=== PATIENT | female | born 1955 | race African-American/Black ===

== ENCOUNTER 2016-06-23 08:59 | Inpatient (IN) | payer OTHER ==
[~2016-06-23] VITALS: Ht 165.1 cm; Wt 101.5 kg
[2016-06-23] VITALS (7 sets, daily range): BP systolic 121–141; BP diastolic 66–80; PULSE 47–64; RESP 16–19; TEMP 98.3–99.2; O2SAT 63–100
[~2016-06-23 08:59] MED LIST: ASPI325T PO; BENA20TA PO; CHOL100025 CHEW; GINK40TA2 PO; HYDR25TA5 PO; METO100T9 PO; MULTTAB67 PO; OMEGCAP PO; REFRDRO EACH EYE; ST J PO; VITA10004 PO
[2016-06-23 09:52] LABS: AUTOMATED NEUTROPHIL # 3.4 TH/MM3 (1.8-7.7); BASOPHIL # 0.1 TH/MM3 (0-0.2); BASOPHIL % 0.9 % (0.0-2.0); EOSINOPHIL # 0.3 TH/MM3 (0-0.4); HEMATOCRIT 41.2 % (35.0-46.0); HEMO FLAGS DIFF FINAL; LYMPH % 24.6 % (9.0-44.0); LYMPHOCYTE # 1.3 TH/MM3 (1.0-4.8); MEAN CELL VOLUME 80.8 FL (80.0-100.0); MEAN CORPUSCULAR HEMOGLOBIN 26.5 PG (27.0-34.0); MEAN CORPUSCULAR HGB CONC 32.8 % (32.0-36.0); NEUT % 62.5 % (16.0-70.0); PLATELET COUNT 260 TH/MM3 (150-450); RED CELL DISTRIBUTION WIDTH 13.8 % (11.6-17.2); WHITE BLOOD COUNT 5.4 TH/MM3 (4.0-11.0)
[2016-06-23 10:00] LABS: APTT (PATIENT) 28.2 SEC (24.3-30.1); PROTHROMBIN TIME - PATIENT 10.5 SEC (9.8-11.6)
[2016-06-23 10:18] LABS: BICARBONATE 29.8 MEQ/L (21.0-32.0); POTASSIUM 3.6 MEQ/L (3.5-5.1)
[2016-06-23] MEDS ORDERED: MIDAZOLAM HCL 2 MG/2 ML VIAL ONE (10:48)
[2016-06-23] MEDS ORDERED: HEPARIN-NS/PF INJ 500 ML ONE (10:50)
[2016-06-23] MEDS ORDERED: NITROGLYCERIN 0.4 MG SL 25 TABS/BTL SL ONE (11:24)
[2016-06-23] MEDS ORDERED: MORPHINE SULFATE 8 MG/ML INJ ONE (11:26)
[2016-06-23] MEDS ORDERED: SODIUM CHLOR 0.9% 1000 ML INJ 1,000 ML IV SCH (11:35)
[2016-06-23] MEDS ORDERED: MISC INFORMATION XX ONE (11:45)
[2016-06-23] MEDS ORDERED: HEPARIN-D5W INJ 250 ML IV SCH (11:45)
[2016-06-23] MEDS ORDERED: ATROPINE SULFATE 1 MG/ML VIAL IV PRN (11:45)
[2016-06-23] MEDS ORDERED: SODIUM CHLOR 0.9% 250 ML INJ 250 ML IV PRN (11:45)
[2016-06-23] MEDS ORDERED: METOPROLOL SUCCINATE 50 MG EXTENDED RELEASE TAB PO SCH (12:00)
[2016-06-23] MEDS ORDERED: NITROGLYCERIN 2% OINT 1 GM PACKET TOPICAL SCH ×2 (12:00→18:00)
[2016-06-23] MEDS ORDERED: PILL SPLITTER OTHER PRN (12:15)
[2016-06-23] MEDS ORDERED: HYDROCHLOROTHIAZIDE 25 MG TAB PO SCH (13:00)
[2016-06-23] MEDS ORDERED: LISINOPRIL 20 MG TAB PO SCH (13:00)
[2016-06-23] MEDS ORDERED: HEPARIN SODIUM - IV 10,000 UNITS/10 ML VIAL IV ONE (13:30)
--- NOTE | 2016-06-23 13:49 | EKG ---
Date Performed: 06/23/2016 Time Performed: 09:51:30 PTAGE: 60 years EKG: Sinus bradycardia Normal ECG except for rate COMPARED TO PRIOR ELECTROCARDIOGRAM, I cannot accurately compare because of artifact on prior electrocardiogram. PREVIOUS TRACING : 11/30/2007 19.49 DOCTOR: Vazquez Bermudez Interpretating Date/Time 06/23/2016 13:47:06
--- NOTE | 2016-06-23 14:37 | MA ---
cc: JOSIE LEE MD, GLENN H. M.D. DATE: 06/23/2016 PROCEDURE Left heart catheterization, selective coronary angiography, left ventriculography. PROCEDURE NOTES The patient was brought to the cardiac catheterization laboratory in a fasting state after having signed informed consent. The right groin was prepped and draped as per policy and anesthetized with 1% lidocaine. Arterial access was obtained via the right femoral artery and a 6-Belarusian sheath was placed. Coronary arteriography was performed using 6-Bel[place]ian Dago left 4.0 and right progressive catheters. Left ventriculography was done using a standard 6-[place]arusian pigtail. There were no apparent immediate complications. Her arteriotomy site was closed with Vascade with the achievement of good hemostasis. HEMODYNAMIC DATA Left ventricle 129 with an end-diastolic pressure is 16. Aorta 123/68 with a mean of 93. There was no significant transvalvular aortic gradient on pullback of the pigtail catheter. CORONARY ARTERIOGRAPHY The left main has overall mild ostial to mid disease resulting in up to 15% stenosis. The proximal LAD is totally occluded very near the ostium. There was late faint filling of the mid to distal LAD and a small diagonal. The left circumflex is a small vessel giving rise to a very large obtuse marginal. There are overall minimal luminal irregularities in the left circumflex system. The right coronary artery is a fairly large dominant vessel with diffuse mild disease resulting in up to 20% stenosis. LEFT VENTRICULOGRAPHY Contrast injection of the left ventricle reveals no definite segmental wall motion abnormalities. Ejection fraction is estimated at 60%. CONCLUSION 1. Severe single-vessel coronary artery disease (LAD). 2. Normal left ventricular function with estimated ejection fraction is 60%. DISCUSSION The patient will be referred for bypass surgery. A left internal mammary artery could be placed to the LAD. The total occlusion proximally appears to be relatively long and very close to the ostium. Hosea Gonzalez MD [facility]/TLL /11:32 AM /2:27 PM [facility] CENTERVeronica
[2016-06-23] MEDS ORDERED: PAPAVERINE INJ 60 MG, NITROGLYCERIN INJ 100 MCG, DILTIAZEM INJ 100 MG in SODIUM CHLORID... IRRIGATION SCH (15:30)
[2016-06-23] MEDS ORDERED: ACETAMINOPHEN 325 MG TAB PO PRN (15:30)
[2016-06-23] MEDS ORDERED: NALOXONE HCL 0.4 MG/ML AMP IV PRN (15:30)
[2016-06-23] MEDS ORDERED: INSULIN REGULAR (IV INFUSION) 100 UNITS in SODIUM CHLORIDE 0.9% INJ 100 ML IV SCH (15:30)
[2016-06-23] MEDS ORDERED: ONDANSETRON HCL 4 MG/2 ML VIAL IVP PRN (15:30)
[2016-06-23] MEDS ORDERED: SODIUM CHLORIDE 0.9% FLUSH 10 ML FLUSH IV FLUSH PRN ×2 (15:30)
[2016-06-23] MEDS ORDERED: CHLORHEXIDINE GLUCONATE 4% SOLN 120 ML BTL TOPICAL SCH (15:30)
[2016-06-23] MEDS ORDERED: ceFAZolin 2 GM PREMIX 50 ML IV SCH (15:30)
[2016-06-23] MEDS ORDERED: CEFAZOLIN INJ 500 MG in SODIUM CHLORIDE 0.9% IRR BTL 500 ML IRRIGATION SCH (15:30)
[2016-06-23] MEDS ORDERED: METOPROLOL TARTRATE 25 MG TAB PO SCH (15:30)
--- NOTE | 2016-06-23 15:37 | PD.CAR.PN ---
CVT Progress Note Subjective/Hospital Course: sts data discussed with pt RISK SCORES About the STS Risk Calculator Procedure: CAB Only Risk of Mortality: 0.486% Morbidity or Mortality: 8.36% Long Length of Stay: 3.16% Short Length of Stay: 55.881% Permanent Stroke: 0.586% Prolonged Ventilation: 6.068% DSW Infection: 0.371% Renal Failure: 1.098% Reoperation: 3.281% Objective: Vital Signs Date Time Temp Pulse Resp B/P Pulse Ox O2 Delivery O2 Flow Rate FiO2 06/23/16 12:22 98 Room Air 06/23/16 09:00 53 19 141/73 100 Labs: Laboratory Tests Test 06/23/16 09:25 White Blood Count 5.4 TH/MM3 (4.0-11.0) Red Blood Count 5.10 MIL/MM3 (4.00-5.30) Hemoglobin 13.5 GM/DL (11.6-15.3) Hematocrit 41.2 % (35.0-46.0) Mean Corpuscular Volume 80.8 FL (80.0-100.0) Mean Corpuscular Hemoglobin 26.5 PG (27.0-34.0) Mean Corpuscular Hemoglobin 32.8 % Concent (32.0-36.0) Red Cell Distribution Width 13.8 % (11.6-17.2) Platelet Count 260 TH/MM3 (150-450) Mean Platelet Volume 7.5 FL (7.0-11.0) Neutrophils (%) (Auto) 62.5 % (16.0-70.0) Lymphocytes (%) (Auto) 24.6 % (9.0-44.0) Monocytes (%) (Auto) 6.0 % (0.0-8.0) Eosinophils (%) (Auto) 6.0 % (0.0-4.0) Basophils (%) (Auto) 0.9 % (0.0-2.0) Neutrophils # (Auto) 3.4 TH/MM3 (1.8-7.7) Lymphocytes # (Auto) 1.3 TH/MM3 (1.0-4.8) Monocytes # (Auto) 0.3 TH/MM3 (0-0.9) Eosinophils # (Auto) 0.3 TH/MM3 (0-0.4) Basophils # (Auto) 0.1 TH/MM3 (0-0.2) CBC Comment DIFF FINAL Differential Comment Prothrombin Time 10.5 SEC (9.8-11.6) Prothromb Time International 1.0 RATIO Ratio Activated Partial 28.2 SEC Thromboplast Time (24.3-30.1) Sodium Level 138 MEQ/L (136-145) Potassium Level 3.6 MEQ/L (3.5-5.1) Chloride Level 102 MEQ/L (98-107) Carbon Dioxide Level 29.8 MEQ/L (21.0-32.0) Anion Gap 6 MEQ/L (5-15) Blood Urea Nitrogen 16 MG/DL (7-18) Creatinine 0.93 MG/DL (0.50-1.00) Estimat Glomerular Filtration 74 ML/MIN (>89) Rate Random Glucose 89 MG/DL (74-106) Calcium Level 9.0 MG/DL (8.5-10.1) Result Diagram: 06/23/16 0925 06/23/16 0925 Connie Osorio Jun 23, 2016 15:37
--- NOTE | 2016-06-23 16:26 | RADRPT ---
EXAM DATE/TIME: 06/23/2016 16:06 [facility] COMPARISON: No previous studies available for comparison. INDICATIONS : Evaluate for pneumonia, pneumothorax, and communicable disease. Pre op for CABG. MEDICAL HISTORY : None. SURGICAL HISTORY : None. ENCOUNTER: Initial ACUITY: 1 day PAIN SCORE: 0/10 LOCATION: Bilateral chest FINDINGS: PA and lateral views of the chest demonstrate the lungs to be symmetrically aerated without evidence of mass, infiltrate or effusion. The cardiomediastinal contours are unremarkable. Osseous structure s are intact. CONCLUSION: No acute disease. Luciano Magana MD on June 23, 2016 at 16:24 Board Certified Radiologist. This report was verified electronically.
[2016-06-23] MEDS ORDERED: IOHEXOL 350 MG/ML 100 ML BTL (for Cath Lab) OTHER ONE (16:53)
[2016-06-23 17:40] LABS: BLOOD, URINE NEG (NEG); COMMENT (UR) CULT NOT INDICATED; CULTURE IF INDICATED CULT NOT INDICATED; GLUCOSE,URINE NEG (NEG); KETONE, URINE NEG (NEG); NITRITE,URINE NEG (NEG); PH, URINE 6.5 (5.0-8.5); SQUAMOUS EPITHELIAL CELL URINE 1 /hpf (0-5); URINE COLOR LIGHT-YELLOW (YELLW/STRAW)
[2016-06-23] MEDS ORDERED: HEPARIN SODIUM - IV 10,000 UNITS/10 ML VIAL IV PRN ×2 (17:45)
--- NOTE | 2016-06-23 20:28 | RADRPT ---
EXAM DATE/TIME: 06/23/2016 17:21 [facility] COMPARISON: No previous studies available for comparison. INDICATIONS : Preop CABG. MEDICAL HISTORY : Cataracts. Syncopy. Palpitations. Heart murmur. HTN. SURGICAL HISTORY : Tonsillectomy. section. Left shoulder. Right jaw mass removed. Cardiac cath. ENCOUNTER: Initial ACUITY: 1 day PAIN SCORE: 0/10 LOCATION: Bilateral neck PEAK SYSTOLIC VELOCITIES (cm/sec): ICA/CCA RATIO: Right: 1.1 Left: 1.1 ICA: Right: 102 Left: 95 CCA: Right: 97 Left: 87 ECA: Right: 90 Left: 122 VERTEBRAL: Right: 58 antegrade Left: 45 antegrade Elevated flow velocities and ICA/CCA ratios have been found to correlate with increased degrees of vessel stenosis, calculated as percentage of diameter relative to a normal segment of distal ICA/CCA FINDINGS: Antegrade flow is seen in both vertebral arteries. There is mild to moderate atherosclerotic plaquing at the origin of both ICAs without any significant stenosis. CONCLUSION: No evidence for hemodynamically significant stenosis. Marques Kaye MD on June 23, 2016 at 20:25 Board Certified Radiologist. This report was verified electronically.
--- NOTE | 2016-06-23 20:32 | RADRPT ---
EXAM DATE/TIME: 06/23/2016 17:38 [facility] COMPARISON: No previous studies available for comparison. INDICATIONS : Preop CABG. MEDICAL HISTORY : Cataracts. Syncopy. Palpitations. Heart murmur. HTN. SURGICAL HISTORY : Tonsillectomy. section. Left shoulder. Right jaw mass removed. Cardiac cath. ENCOUNTER: Initial ACUITY: 1 day PAIN SCORE: 0/10 LOCATION: Bilateral leg. TECHNIQUE: Venous ultrasound of the left and right leg was performed from the inguinal ligament to the proximal calf. Real-time, color Doppler and spectral tracing, compression and augmentation techniques were us ed. FINDINGS: RIGHT LEG: There is normal compressibility of the deep venous system from the inguinal region to the proximal ca lf. No echogenic clot is seen in the lumen of the common femoral, femoral, popliteal, and posterior tibial veins. There is a normal response of the venous system to proximal and distal augmentation an d respiration. The evaluation of the right iliac and common femoral veins are limited due to bandage . LEFT LEG: There is normal compressibility of the deep venous system from the inguinal region to the proximal ca lf. No echogenic clot is seen in the lumen of the common femoral, femoral, popliteal, and posterior tibial veins. There is a normal response of the venous system to proximal and distal augmentation an d respiration. CONCLUSION: Normal examination. Marques Kaye MD on June 23, 2016 at 20:26 Board Certified Radiologist. This report was verified electronically.
--- NOTE | 2016-06-23 20:32 | RADRPT ---
EXAM DATE/TIME: 06/23/2016 17:48 [facility] COMPARISON: No previous studies available for comparison. INDICATIONS : Preop CABG. MEDICAL HISTORY : Cataracts. Syncopy. Palpitations. Heart murmur. HTN. SURGICAL HISTORY : Tonsillectomy. section. Left shoulder. Right jaw mass removed. Cardiac cath. ENCOUNTER: Initial ACUITY: 1 day PAIN SCORE: 0/10 LOCATION: Bilateral leg. GREATER SAPHENOUS VEIN THIGH: PROXIMAL: Right 3 mm Left 3 mm MID: Right 3 mm Left 3 mm DISTAL: Right 2 mm Left 2 mm CALF: PROXIMAL: Right 2 mm Left 2 mm MID: Right 1 mm Left 1 mm DISTAL: Right 1 mm Left 1 mm FINDINGS: The venous system of the lower extremities are patent by color Doppler imaging. Measurements of the leg veins (in mm) are listed above. CONCLUSION: Normal examination. Marques Kaye MD on June 23, 2016 at 20:30 Board Certified Radiologist. This report was verified electronically.
[2016-06-23] MEDS: ATORVASTATIN 40 MG TAB PO SCH (21:00)
[2016-06-23] MEDS ORDERED: SODIUM CHLORIDE 0.9% FLUSH 10 ML FLUSH IV FLUSH SCH (21:00)
[2016-06-23] MEDS: SODIUM CHLORIDE 0.9% FLUSH 10 ML FLUSH IV FLUSH SCH (21:00)
[2016-06-23 22:27] LABS: HEMOGLOBIN A1b 1.6 %; HEMOGLOBIN Ao 85.9 %; HEMOGLOBIN LA1C 1.8 %; HEMOGLOBIN P3 3.9 %
[2016-06-24] VITALS (18 sets, daily range): BP systolic 107–118; BP diastolic 57–71; PULSE 46–68; RESP 10–18; TEMP 95.4–98.4; O2SAT 97–99
[2016-06-24] MEDS: DOCUSATE SODIUM 100 MG CAP PO SCH ×2 (04:00→16:05)
[2016-06-24] MEDS ORDERED: AMINOCAPROIC ACID INJ 250 MG/ML 20 ML VIAL IV ONE (05:00)
[2016-06-24] MEDS ORDERED: ARTIFICIAL TEARS OPTH OINT 3.5 APPLIC/3.5 GM TUBO ONE (05:00)
[2016-06-24] MEDS ORDERED: MAGNESIUM SULFATE 1000 MG/2 ML VIAL (PED) IV ONE (05:00)
[2016-06-24] MEDS ORDERED: DEXMEDETOMIDINE INJ 50 ML IV ONE (05:00)
[2016-06-24] MEDS ORDERED: HEPARIN SODIUM - SQ 10,000 UNITS/ML VIAL SQ ONE (05:00)
[2016-06-24] MEDS ORDERED: PROTAMINE SULFATE 250 MG/25 ML VIAL IV ONE (05:00)
[2016-06-24] MEDS ORDERED: CARDIOPLEGIC IRR 1,000 ML ONE (06:34)
[2016-06-24] MEDS ORDERED: POTASSIUM CHLORIDE 40 MEQ/20 ML VIAL ONE (06:34)
[2016-06-24] MEDS ORDERED: ALBUMIN HUMAN 25% 12.5 GM/50 ML BAGP IV ONE (06:35)
[2016-06-24] MEDS ORDERED: MANNITOL INJ 50 ML ONE (06:35)
[2016-06-24] MEDS ORDERED: SODIUM BICARBONATE 8.4% INJ 50 MEQ/50 ML SYR ONE (06:35)
[2016-06-24] MEDS ORDERED: HEPARIN SODIUM - SQ 10,000 UNITS/ML VIAL ONE ×2 (06:36→06:39)
[2016-06-24] MEDS ORDERED: HEPARIN SODIUM - IV 10,000 UNITS/10 ML VIAL ONE (06:36)
[2016-06-24] MEDS ORDERED: VANCOMYCIN HCL 1000 MG VIAL ONE (06:39)
[2016-06-24] MEDS ORDERED: methylPREDNISolone SOD SUCC 125 MG/2 ML VIAL ONE (06:39)
[2016-06-24] MEDS ORDERED: ceFAZolin 2 GM PREMIX 50 ML ONE (06:39)
[2016-06-24 07:28] LABS: BICARBONATE 26.8 MEQ/L (21.0-32.0); POTASSIUM 3.4 MEQ/L (3.5-5.1)
[2016-06-24 07:29] LABS: HDL CHOLESTEROL 64.6 MG/DL (40.0-60.0)
--- NOTE | 2016-06-24 07:57 | MH ---
cc: CAMRYN AUSTIN DATE OF ADMISSION: 06/23/2016 ADMITTING DIAGNOSIS: This is a 60-year-old female, date of 1955. This is a patient of Dr. Hola Trinidad, Dr. Garcia and catheterization was done by Dr. Hosea Gonzalez. This 60-year-old female with history of chest pain off and on for the last 5-6 months without exertion and the pain is under her left breast associated with shortness of breath, fatigue underwent Lexiscan and then underwent cardiac catheterization by Dr. Jc rate os which showed left main disease of 15% proximal LAD 100% mid distal questionable diagonal 10% circ was 10% OM 10% RCA 20% EF 60%. The patient has follicle history significant for depression, hypertension, obesity, palpitations, syncope. She has a history of bariatric surgery 2014, breast biopsy 2010 which was negative lymph recorder implantation for that she has had placed in January 2016. She has ALLERGIES NO KNOWN DRUG ALLERGIES MEDICATIONS home meds include 1. Aspirin 325 daily. 2. Benazepril 20 p.o. daily. 3. Multivitamin. 4. Metoprolol 100 p.o. daily pallor. She is here unknown. FAMILY HISTORY The patient was raised by her paternal grandmother SOCIAL HISTORY The patient lives with her son 35-year history of tobacco abuse, quit 8 years ago. Rare alcohol. REVIEW OF SYSTEMS IN GENERAL: No night sweats, fever, heat and cold intolerance. SKIN: No psoriasis, itching or bleeding. HEAD, EYES, EARS, NOSE, AND THROAT: No blurred vision, hearing loss. RESPIRATORY: As above in history of present illness. GASTROINTESTINAL: No diarrhea, nausea, vomiting. Genitourinary: No burning frequency, urgency CENTRAL NERVOUS SYSTEM: No history of TIA, CVA, seizure disorder. ENDOCRINE: No history of diabetes and/or hypothyroidism. PHYSICAL EXAMINATION: VITAL SIGNS: Blood pressure 140/70, heart rate at 53, O2 sat 98 on room air. IN GENERAL: Patient is awake, alert in no acute distress head is normocephalic, atraumatic. HEAD, EYES, EARS, NOSE, AND THROAT: Pupils equal and reactive. Oral mucosa pink, moist. NECK: Supple. No JVD. Heart sounds S1-S2 regular rate and rhythm. No rubs, murmurs, gallops. LUNGS: Clear to auscultation. No wheezes, rales or rhonchi. ABDOMEN: Abdomen is soft, nontender. No masses or organomegaly. EXTREMITIES: No cyanosis, clubbing or edema. LABORATORY FINDINGS Shows INR 1.08, hemoglobin 13, hematocrit of 41, white cell count 5.4, platelet count 260 sodium 138, potassium 3.6, BUN 16, creatinine 0.93, glucose 89. Chest x-ray Ultrasound of the carotids Lower extremity ultrasound pending. IMPRESSION This is a very pleasant 60-year-old female with history of chest pain a positive heart catheterization with 100% proximal LAD, EF of 60%. Procedures, alternatives and risks have been discussed with the patient and plan will be for coronary artery bypass graft x1 MAE to the LAD in the a.m. the patient is agreeable to proceed. STS will be completed and placed in the electronic record, and also discussed with the patient. Camryn Austin MD DICTATED BY: MARIA ELENA Bird/burke /3:56 PM /7:58 AM
[2016-06-24] MEDS ORDERED: NON-FORMULARY DRUG (Fish Oil-Cholecalciferol (Omega-3 Fish Oil/Vitamin) 1 CAP) PO SCH (09:00)
[2016-06-24] MEDS ORDERED: POTASSIUM CHLOR 20 MEQ PREMIX 100 ML ONE (09:56)
[2016-06-24] MEDS ORDERED: CALCIUM CHLORIDE 10% 1 GRAM/10 ML VIAL IV PRN (10:00)
[2016-06-24] MEDS ORDERED: POTASSIUM CHLOR 20 MEQ PREMIX 100 ML IV PRN ×3 (10:00)
[2016-06-24] MEDS ORDERED: ACETAMINOPHEN 650 MG SUPP RECTAL PRN (10:00)
[2016-06-24] MEDS ORDERED: MAGNESIUM SULFATE INJ 2 GM in SODIUM CHLORIDE 0.9% INJ 100 ML IV PRN ×4 (10:00)
[2016-06-24] MEDS ORDERED: ACETAMINOPHEN 325 MG TAB PO PRN (10:00)
[2016-06-24] MEDS ORDERED: CALCIUM CHLORIDE INJ 1 GM in SODIUM CHLORIDE 0.9% INJ 100 ML IV PRN (10:00)
[2016-06-24] MEDS ORDERED: Post-op Orders (for Pharmacy) MISC OTHER ONE (10:00)
[2016-06-24] MEDS ORDERED: POTASSIUM CHLORIDE 20 MEQ CONTROLLED RELEASE TAB PO PRN ×2 (10:00)
[2016-06-24] MEDS ORDERED: METOPROLOL TARTRATE 5 MG/5 ML VIAL IV PUSH PRN (10:00)
[2016-06-24] MEDS ORDERED: hydrALAZINE HCL 20 MG/ML VIAL IV PRN (10:00)
[2016-06-24] MEDS ORDERED: DEXTROSE 50% IN WATER 50 ML VIAL(D50) IV PUSH PRN (10:00)
--- NOTE | 2016-06-24 10:08 | PD.OP ---
cc: Camryn Austin MD; Hosea Gonzalez MD Operative Report Date of Surgery: Jun 24, 2016 Preoperative Diagnosis: (1) Unstable angina (2) CAD (coronary artery disease) Postoperative Diagnosis: same Procedure: Off pump CABG x 1 MAE to LAD - good Anesthesia: Dr. Hwang Surgeon: Camryn Austin Adhesive Primer(s): JOSIAH Oh Operation and Findings: The risks, benefits, complications, treatment options, and expected outcomes were discussed with the patient. The possibilities of reaction to medication, pulmonary aspiration, perforation of viscus, bleeding, recurrent infection, the need for additional procedures, failure to diagnose a condition, and creating a complication requiring transfusion or operation were discussed with the patient. The patient concurred with the proposed plan, giving informed consent. The site of surgery properly noted/marked. The patient was taken to Operating Room # , identified as Sara Hurtado and the procedure verified as CABG. A Time Out was held and the above information confirmed. Standard monitoring lines and Mina catheter were placed. General anesthesia was induced. The patient was prepped and draped in a sterile fashion. A median sternotomy was performed and electrocautery was used to obtain hemostasis. The left internal mammary artery was procured as a pedicle from the 7th rib to the 1st rib in the usual manner. The pericardium was opened and a pericardial sling was created using interrupted 0 silk sutures. The patient was heparinized for cardiopulmonary bypass and the distal mammary pedicle was instrumented for anastomosis. The heart was instrumented for off pump CABG with a stabilizer. The distal LAD was opened with a [place] blade and found to be a 1.5 millimeter good target. The left internal mammary artery was approximated to the LAD using a running 7 0 Prolene suture. The pedicle was attached to the epicardium using interrupted 5 0 silk suture. Protamine was given. There was no adverse reaction. Wound was checked for hemostasis which was obtained using electrocautery. A 36 Chinese mediastinal and 32 Chinese left pleural chest tubes were placed and secured to the skin with 0 silk suture. The pericardium was closed with interrupted 0 silk suture. The sternum was closed with stainless steel wire. The fascia was closed with 1. PDS. The subcutaneous tissue was closed using a running 2-0 Vicryl suture. The skin was closed with 4-0 Monocryl. Sterile dressings were placed. At the end of the operation, all sponge, instruments, and needle counts were correct. The patient was transferred to the CVICU in stable condition. Findings: good distal target Drains: mediastinal x 1 pleural x 1 Complications: none Disposition: to CVICU in stable condition Camryn Austin MD Jun 24, 2016 10:08
[2016-06-24] MEDS ORDERED: MIDAZOLAM HCL 5 MG/5 ML VIAL ONE (10:40)
[2016-06-24] MEDS ORDERED: fentaNYL CITRATE 1000 MCG/20 ML VIAL ONE (10:40)
[2016-06-24] MEDS ORDERED: LACTATED RINGER'S 1000 ML INJ 500 ML IV PRN (11:00)
[2016-06-24] MEDS ORDERED: CLEVIDIPINE INJ 50 ML IV SCH (11:00)
[2016-06-24] MEDS ORDERED: ONDANSETRON HCL 4 MG/2 ML VIAL IV PUSH PRN (11:00)
[2016-06-24] MEDS ORDERED: INSULIN REGULAR (IV INFUSION) 100 UNITS in SODIUM CHLORIDE 0.9% INJ 99 ML IV SCH (11:00)
[2016-06-24] MEDS: ACETAMINOPHEN 1000 MG/100 ML VIAL IV SCH ×3 (11:19→21:27)
--- NOTE | 2016-06-24 11:28 | RADRPT ---
EXAM DATE/TIME: 06/24/2016 10:36 [facility] COMPARISON: No previous studies available for comparison. INDICATIONS : Post op CABG MEDICAL HISTORY : Cardiovascular disease. SURGICAL HISTORY : CABG. ENCOUNTER: Initial ACUITY: 1 day PAIN SCORE: Non-responsive. LOCATION: Bilateral chest FINDINGS: Central venous catheter, left chest tube, ET tube and mediastinal drains are evident. Right lung is clear. Very minimal parenchymal changes are seen in the left perihilar region. There is no pneumoth orax. CONCLUSION: 1. Minimal parenchymal changes left perihilar region otherwise negative. 2. There is no pneumothorax. Damon Dozier MD FACR on June 24, 2016 at 11:22 Board Certified Radiologist. This report was verified electronically.
[2016-06-24] MEDS ORDERED: RESP: ALBUTEROL 2.5 MG/IPRATROPIUM 0.5 MG NEB (PRN) NEB (11:30)
[2016-06-24] MEDS ORDERED: RESP: RACEPINEPHRINE 2.25% 0.5 ML NEB NEB PRN (11:30)
[2016-06-24] MEDS: SODIUM CHLORIDE 0.9% FLUSH 10 ML FLUSH IV FLUSH SCH ×2 (11:52→21:25)
[2016-06-24] MEDS: ASPIRIN 325 MG TAB PO SCH (11:52)
[2016-06-24] MEDS: METOCLOPRAMIDE HCL 10 MG/2 ML VIAL IV PUSH SCH ×3 (12:02→21:26)
[2016-06-24] MEDS: POLYVINYL ALC-POVIDONE 1.4/0.6% PF OPTH SOLN 0.4 ML 30 CT EACH EYE SCH ×2 (12:02→17:36)
[2016-06-24] MEDS: NS 1000P @30 MLS/HR (KVO) IV SCH (12:19)
[2016-06-24] MEDS: oxyCODONE/ACETAMINOPHEN 5 MG/325 MG TAB PO PRN ×2 (16:05→18:21)
[2016-06-24] MEDS: RESP: ALBUTEROL 2.5 MG/IPRATROPIUM 0.5 MG NEB (SCH) NEB ×2 (16:11→20:59)
[2016-06-24] MEDS: AMIODARONE 200 MG TAB PO SCH (21:26)
[2016-06-24] MEDS: ATORVASTATIN 40 MG TAB PO SCH (21:26)
[2016-06-25] VITALS (22 sets, daily range): BP systolic 109–156; BP diastolic 60–93; PULSE 60–116; RESP 16–19; TEMP 98–99.1; O2SAT 95–98
[2016-06-25] MEDS: RESP: ALBUTEROL 2.5 MG/IPRATROPIUM 0.5 MG NEB (SCH) NEB ×6 (03:33→22:00)
[2016-06-25] MEDS: DOCUSATE SODIUM 100 MG CAP PO SCH ×3 (04:45→21:52)
[2016-06-25] MEDS: PANTOPRAZOLE SOD 40 MG DELAYED RELEASE TAB PO SCH (04:45)
[2016-06-25] MEDS: ACETAMINOPHEN 1000 MG/100 ML VIAL IV SCH (04:45)
[2016-06-25 04:58] LABS: HEMATOCRIT 33.2 % (35.0-46.0); MEAN CELL VOLUME 80.2 FL (80.0-100.0); MEAN CORPUSCULAR HEMOGLOBIN 26.1 PG (27.0-34.0); MEAN CORPUSCULAR HGB CONC 32.6 % (32.0-36.0); PLATELET COUNT 196 TH/MM3 (150-450); RED BLOOD COUNT 4.14 MIL/MM3 (4.00-5.30); RED CELL DISTRIBUTION WIDTH 13.5 % (11.6-17.2); REVIEW FLAG FINAL; WHITE BLOOD COUNT 12.3 TH/MM3 (4.0-11.0)
[2016-06-25] MEDS: METOCLOPRAMIDE HCL 10 MG/2 ML VIAL IV PUSH SCH ×4 (05:23→21:53)
[2016-06-25 05:38] LABS: BICARBONATE 24.2 MEQ/L (21.0-32.0); MAGNESIUM 2.3 MG/DL (1.5-2.5); POTASSIUM 3.9 MEQ/L (3.5-5.1)
--- NOTE | 2016-06-25 06:13 | RADRPT ---
EXAM DATE/TIME: 06/25/2016 05:17 [facility] COMPARISON: CHEST SINGLE AP, June 24, 2016, 10:36. INDICATIONS : Shortness of breath, possible pulmonary disease. MEDICAL HISTORY : Cardiovascular disease. SURGICAL HISTORY : CABG. ENCOUNTER: Subsequent ACUITY: 2 days PAIN SCORE: Non-responsive. LOCATION: Bilateral chest FINDINGS: Mild patchy pulmonary opacity is again seen on the left. A left chest tube remains in place. No pneum othorax seen. No large effusion. Right lung remains clear. Changes of median sternotomy again noted. Heart size normal. Patient has been extubated. Nasogastric tube out. I believe the mediastinal drain has also been remov ed. CONCLUSION: 1. Interim extubation. 2. Otherwise unchanged. Left chest tube remains in place. Mild parenchymal opacities and small pleura l effusion again noted on the left. No pneumothorax. Yadiel Jang MD on June 25, 2016 at 6:10 Board Certified Radiologist. This report was verified electronically.
[2016-06-25] MEDS: ASPIRIN 81 MG CHEW TAB PO SCH (08:53)
[2016-06-25] MEDS: SODIUM CHLORIDE 0.9% FLUSH 10 ML FLUSH IV FLUSH SCH ×2 (08:54→21:56)
[2016-06-25] MEDS: AMIODARONE 200 MG TAB PO SCH ×2 (08:56→21:52)
[2016-06-25] MEDS: POLYVINYL ALC-POVIDONE 1.4/0.6% PF OPTH SOLN 0.4 ML 30 CT EACH EYE SCH ×3 (08:57→18:00)
[2016-06-25] MEDS: ASPIRIN 325 MG TAB PO SCH (08:57)
[2016-06-25] MEDS: NS 1000P @30 MLS/HR (KVO) IV SCH (08:57)
--- NOTE | 2016-06-25 09:11 | PD.CAR.PN ---
CVT Progress Note Subjective/Hospital Course: 06/24 Procedure Off pump CABG x 1 MAE to LAD 06/25 Doing well Transfer telemetry Maintain CT to drainage Objective: Vital Signs Date Time Temp Pulse Resp B/P Pulse Ox O2 Delivery O2 Flow Rate FiO2 06/25/16 07:00 98.3 65 16 133/72 98 06/25/16 07:00 98 Nasal Cannula 2.00 06/25/16 07:00 65 06/25/16 05:15 16 06/25/16 04:00 98.8 77 16 133/72 98 06/25/16 04:00 16 06/25/16 03:52 72 06/25/16 03:11 99 Nasal Cannula 4.00 06/25/16 00:00 98.0 60 16 109/60 98 06/25/16 00:00 61 06/24/16 23:45 99 Nasal Cannula 4.00 06/24/16 21:26 99 Nasal Cannula 4.00 06/24/16 20:00 97.8 58 18 114/68 99 06/24/16 19:45 99 Nasal Cannula 4.00 06/24/16 19:30 16 06/24/16 19:12 58 06/24/16 15:26 95.4 56 10 107/57 98 06/24/16 15:25 99 Nasal Cannula 4.00 06/24/16 15:00 52 06/24/16 11:45 98 Nasal Cannula 4.00 06/24/16 11:45 99 Nasal Cannula 4.00 06/24/16 11:45 99 Nasal Cannula 4 06/24/16 11:15 99 Mechanical Ventilator 10.00 35 06/24/16 11:00 56 06/24/16 11:00 95.4 56 10 107/57 98 06/24/16 10:45 99 Mechanical Ventilator 10.00 40 06/24/16 10:36 95.4 06/24/16 10:30 50 06/24/16 10:30 99 50 06/24/16 10:30 99 Mechanical Ventilator 10.00 50 Labs: Laboratory Tests Test 06/25/16 04:50 White Blood Count 12.3 TH/MM3 (4.0-11.0) Red Blood Count 4.14 MIL/MM3 (4.00-5.30) Hemoglobin 10.8 GM/DL (11.6-15.3) Hematocrit 33.2 % (35.0-46.0) Mean Corpuscular Volume 80.2 FL (80.0-100.0) Mean Corpuscular Hemoglobin 26.1 PG (27.0-34.0) Mean Corpuscular Hemoglobin 32.6 % Concent (32.0-36.0) Red Cell Distribution Width 13.5 % (11.6-17.2) Platelet Count 196 TH/MM3 (150-450) Mean Platelet Volume 7.2 FL (7.0-11.0) Sodium Level 138 MEQ/L (136-145) Potassium Level 3.9 MEQ/L (3.5-5.1) Chloride Level 105 MEQ/L (98-107) Carbon Dioxide Level 24.2 MEQ/L (21.0-32.0) Anion Gap 9 MEQ/L (5-15) Blood Urea Nitrogen 13 MG/DL (7-18) Creatinine 0.76 MG/DL (0.50-1.00) Estimat Glomerular Filtration 94 ML/MIN (>89) Rate Random Glucose 115 MG/DL (74-106) Calcium Level 8.0 MG/DL (8.5-10.1) Magnesium Level 2.3 MG/DL (1.5-2.5) Result Diagram: 06/25/16 0450 06/25/16 0450 Blossom Lim MD Jun 25, 2016 09:11
[2016-06-25] MEDS ORDERED: SOD PHOSPHATE/SOD BIPHOSPHATE (ADULT) ENEMA 133ML RECTAL PRN (09:15)
[2016-06-25] MEDS ORDERED: GLUCAGON 1 MG/ML VIAL OTHER PRN (09:15)
[2016-06-25] MEDS ORDERED: BISACODYL 10 MG SUPP RECTAL PRN (09:15)
[2016-06-25] MEDS ORDERED: DEXTROSE 50% IN WATER 50 ML VIAL(D50) IV PRN (09:15)
[2016-06-25] MEDS: INSULIN ASPART SUPPLEMENTAL SCALE SQ SCH ×4 (10:00→21:56)
[2016-06-25] MEDS: oxyCODONE/ACETAMINOPHEN 5 MG/325 MG TAB PO PRN ×3 (10:10→22:12)
--- NOTE | 2016-06-25 19:05 | EKG ---
Date Performed: 06/25/2016 Time Performed: 03:58:42 PTAGE: 60 years EKG: Sinus arrhythmia Anterior T wave changes are nonspecific Low QRS voltages in precordial duc ds Borderline ECG PREVIOUS TRACING : 06/23/2016 09.51 Compared to prior tracing no significant change DOCTOR: Finesse Aguirre Interpretating Date/Time 06/25/2016 19:04:27
[2016-06-25] MEDS: SENNOSIDES 8.6 MG TAB PO SCH (21:52)
[2016-06-25] MEDS: ATORVASTATIN 40 MG TAB PO SCH (21:53)
[2016-06-26] VITALS (28 sets, daily range): BP systolic 122–149; BP diastolic 82–88; PULSE 64–116; RESP 18–20; TEMP 98.4–99.5; O2SAT 93–100
[2016-06-26] MEDS: INSULIN ASPART SUPPLEMENTAL SCALE SQ SCH ×6 (02:00→20:32)
[2016-06-26] MEDS: oxyCODONE/ACETAMINOPHEN 5 MG/325 MG TAB PO PRN ×3 (03:12→20:31)
[2016-06-26] MEDS: DOCUSATE SODIUM 100 MG CAP PO SCH ×3 (03:12→20:31)
[2016-06-26] MEDS: RESP: ALBUTEROL 2.5 MG/IPRATROPIUM 0.5 MG NEB (SCH) NEB ×5 (03:47→20:23)
[2016-06-26] MEDS: PANTOPRAZOLE SOD 40 MG DELAYED RELEASE TAB PO SCH (06:01)
[2016-06-26] MEDS: METOCLOPRAMIDE HCL 10 MG/2 ML VIAL IV PUSH SCH ×4 (06:02→20:31)
[2016-06-26 07:24] LABS: AUTOMATED NEUTROPHIL # 7.4 TH/MM3 (1.8-7.7); BASOPHIL % 0.4 % (0.0-2.0); EOSINOPHIL % 0.3 % (0.0-4.0); HEMATOCRIT 29.9 % (35.0-46.0); HEMO FLAGS DIFF FINAL; LYMPH % 11.8 % (9.0-44.0); LYMPHOCYTE # 1.1 TH/MM3 (1.0-4.8); MEAN CELL VOLUME 80.8 FL (80.0-100.0); MEAN CORPUSCULAR HEMOGLOBIN 26.6 PG (27.0-34.0); MEAN CORPUSCULAR HGB CONC 32.9 % (32.0-36.0); NEUT % 78.5 % (16.0-70.0); PLATELET COUNT 196 TH/MM3 (150-450); RED CELL DISTRIBUTION WIDTH 13.5 % (11.6-17.2); WHITE BLOOD COUNT 9.4 TH/MM3 (4.0-11.0)
[2016-06-26 07:38] LABS: BICARBONATE 28.4 MEQ/L (21.0-32.0); MAGNESIUM 2.3 MG/DL (1.5-2.5); POTASSIUM 3.7 MEQ/L (3.5-5.1)
[2016-06-26] MEDS: ASPIRIN 81 MG CHEW TAB PO SCH (09:00)
[2016-06-26] MEDS: SODIUM CHLORIDE 0.9% FLUSH 10 ML FLUSH IV FLUSH SCH ×2 (09:00→20:32)
[2016-06-26] MEDS: POLYVINYL ALC-POVIDONE 1.4/0.6% PF OPTH SOLN 0.4 ML 30 CT EACH EYE SCH ×3 (09:00→17:02)
[2016-06-26] MEDS: ASPIRIN 325 MG TAB PO SCH (09:30)
[2016-06-26] MEDS: MULTIVITAMINS/MINERALS THERAPEUTIC TAB PO SCH (09:30)
[2016-06-26] MEDS: AMIODARONE 200 MG TAB PO SCH ×2 (09:30→20:31)
[2016-06-26] MEDS: MAGNESIUM HYDROXIDE SUSP 30 ML CUP PO SCH (09:31)
[2016-06-26] MEDS: POLYETHYLENE GLYCOL 17 GM PKG PO SCH (09:32)
[2016-06-26] MEDS: NS 1000P @30 MLS/HR (KVO) IV SCH (09:37)
--- NOTE | 2016-06-26 09:48 | PD.CAR.PN ---
CVT Progress Note Subjective/Hospital Course: 06/24 Procedure Off pump CABG x 1 MAE to LAD 06/25 Doing well Transfer telemetry Maintain CT to drainage 06/[address] still draining Ambulate Objective: Vital Signs Date Time Temp Pulse Resp B/P Pulse Ox O2 Delivery O2 Flow Rate FiO2 06/26/16 07:57 98 21 06/26/16 07:46 99.5 100 20 143/82 97 06/26/16 04:00 102 06/26/16 03:02 98.7 103 18 149/85 98 06/26/16 03:00 108 06/26/16 02:00 106 06/26/16 01:00 112 06/26/16 00:00 111 06/25/16 23:23 98.9 104 18 153/93 98 06/25/16 23:20 16 06/25/16 23:00 108 06/25/16 22:00 106 06/25/16 21:00 108 06/25/16 20:25 95 21 06/25/16 20:00 102 06/25/16 19:10 99.1 104 133/83 97 06/25/16 19:00 104 06/25/16 18:20 97 06/25/16 17:22 94 06/25/16 16:05 98 06/25/16 15:05 98.8 82 156/85 97 06/25/16 15:00 81 06/25/16 14:00 73 06/25/16 13:30 98.3 89 19 153/88 98 06/25/16 11:05 96 21 06/25/16 11:00 73 06/25/16 11:00 98.3 65 16 133/72 98 06/25/16 09:55 98.5 73 17 143/93 98 06/25/16 09:55 116 06/25/16 09:55 97 Room Air Labs: Laboratory Tests Test 06/26/16 06:00 White Blood Count 9.4 TH/MM3 (4.0-11.0) Red Blood Count 3.70 MIL/MM3 (4.00-5.30) Hemoglobin 9.8 GM/DL (11.6-15.3) Hematocrit 29.9 % (35.0-46.0) Mean Corpuscular Volume 80.8 FL (80.0-100.0) Mean Corpuscular Hemoglobin 26.6 PG (27.0-34.0) Mean Corpuscular Hemoglobin 32.9 % Concent (32.0-36.0) Red Cell Distribution Width 13.5 % (11.6-17.2) Platelet Count 196 TH/MM3 (150-450) Mean Platelet Volume 7.7 FL (7.0-11.0) Neutrophils (%) (Auto) 78.5 % (16.0-70.0) Lymphocytes (%) (Auto) 11.8 % (9.0-44.0) Monocytes (%) (Auto) 9.0 % (0.0-8.0) Eosinophils (%) (Auto) 0.3 % (0.0-4.0) Basophils (%) (Auto) 0.4 % (0.0-2.0) Neutrophils # (Auto) 7.4 TH/MM3 (1.8-7.7) Lymphocytes # (Auto) 1.1 TH/MM3 (1.0-4.8) Monocytes # (Auto) 0.8 TH/MM3 (0-0.9) Eosinophils # (Auto) 0.0 TH/MM3 (0-0.4) Basophils # (Auto) 0.0 TH/MM3 (0-0.2) CBC Comment DIFF FINAL Differential Comment Sodium Level 140 MEQ/L (136-145) Potassium Level 3.7 MEQ/L (3.5-5.1) Chloride Level 105 MEQ/L (98-107) Carbon Dioxide Level 28.4 MEQ/L (21.0-32.0) Anion Gap 7 MEQ/L (5-15) Blood Urea Nitrogen 11 MG/DL (7-18) Creatinine 0.78 MG/DL (0.50-1.00) Estimat Glomerular Filtration 91 ML/MIN (>89) Rate Random Glucose 99 MG/DL (74-106) Calcium Level 8.3 MG/DL (8.5-10.1) Magnesium Level 2.3 MG/DL (1.5-2.5) Result Diagram: 06/26/16 0600 06/26/16 0600 Blossom Lim MD Jun 26, 2016 09:48
[2016-06-26] MEDS: METOPROLOL TARTRATE 25 MG TAB PO SCH ×2 (10:10→20:31)
[2016-06-26] MEDS: SENNOSIDES 8.6 MG TAB PO SCH (20:31)
[2016-06-26] MEDS: ATORVASTATIN 40 MG TAB PO SCH (20:31)
[2016-06-27] VITALS (25 sets, daily range): BP systolic 115–153; BP diastolic 69–97; PULSE 66–116; RESP 16–18; TEMP 98–98.9; O2SAT 91–99
[2016-06-27] MEDS: RESP: ALBUTEROL 2.5 MG/IPRATROPIUM 0.5 MG NEB (SCH) NEB ×2 (03:54→08:03)
[2016-06-27] MEDS: PANTOPRAZOLE SOD 40 MG DELAYED RELEASE TAB PO SCH (04:25)
[2016-06-27] MEDS: oxyCODONE/ACETAMINOPHEN 5 MG/325 MG TAB PO PRN (06:00)
[2016-06-27] MEDS: INSULIN ASPART SUPPLEMENTAL SCALE SQ SCH ×4 (06:04→21:00)
[2016-06-27] MEDS: METOCLOPRAMIDE HCL 10 MG/2 ML VIAL IV PUSH SCH (06:04)
[2016-06-27] MEDS: POLYVINYL ALC-POVIDONE 1.4/0.6% PF OPTH SOLN 0.4 ML 30 CT EACH EYE SCH ×3 (08:51→17:32)
[2016-06-27] MEDS: MULTIVITAMINS/MINERALS THERAPEUTIC TAB PO SCH (08:52)
[2016-06-27] MEDS: AMIODARONE 200 MG TAB PO SCH ×2 (08:53→21:02)
[2016-06-27] MEDS: DOCUSATE SODIUM 100 MG CAP PO SCH ×2 (08:53→21:00)
[2016-06-27] MEDS: METOPROLOL TARTRATE 25 MG TAB PO SCH ×2 (08:53→21:02)
[2016-06-27] MEDS: ASPIRIN 81 MG CHEW TAB PO SCH (08:53)
[2016-06-27] MEDS: POLYETHYLENE GLYCOL 17 GM PKG PO SCH (08:54)
[2016-06-27] MEDS: MAGNESIUM HYDROXIDE SUSP 30 ML CUP PO SCH (08:54)
[2016-06-27] MEDS: SODIUM CHLORIDE 0.9% FLUSH 10 ML FLUSH IV FLUSH SCH ×2 (08:56→21:00)
[2016-06-27] MEDS ORDERED: POTASSIUM CHLORIDE 20 MEQ CONTROLLED RELEASE TAB PO ONE (09:00)
[2016-06-27] MEDS ORDERED: POTASSIUM CHLORIDE 10 MEQ CONTROLLED RELEASE TAB PO ONE (11:00)
[2016-06-27] MEDS ORDERED: FUROSEMIDE 40 MG/4 ML VIAL IV PUSH ONE (11:00)
[2016-06-27] MEDS ORDERED: THERM PO (11:02)
[2016-06-27] MEDS ORDERED: Aspirin Chew PO (11:02)
[2016-06-27] MEDS ORDERED: ATOR40TA16 PO (11:02)
[2016-06-27] MEDS ORDERED: AMIO200T PO (11:02)
[2016-06-27] MEDS ORDERED: DOCU1CAP39 PO (11:02)
[2016-06-27] MEDS ORDERED: METO25TA3 PO (11:02)
--- NOTE | 2016-06-27 11:09 | HHI.FF ---
Face to Face Verification Diagnosis: (1) S/P CABG x 1 (2) CAD (coronary artery disease) (3) Glaucoma suspect of both eyes (4) Unstable angina Home Health Nursing Order: Signs/symptoms of disease process Wound care and dressing changes Nursing assessment with vital signs Instructions: Heart and Vascular Surgery patients *Special attention to sternal dressing Mandatory frequency Assess and evaluation, 4 days in a row The next week 3X week 2 times a week for 4 weeks 1 time a week for 5 weeks Schedule Heart and Vascular patients for full 60 day certification period Initial visit Review Open Heart Surgery Discharge Instructions (Sternal precautions, Activity, Elastic hose, Incision care, Driving, Incentive spirometry, Smoking, [place], Work and other) Need Betadine to paint incision Medication reconciliation Importance of follow up care/ check on appointments Make calendar record temperature daily When to call [facility] nurse, review instructions, phone list Incentive Spirometry, demonstration Visit 1- Begin discharge instruction for patient family and/ or caregiver using teach back method- Signs and symptoms of infection Disease characteristics Medicines and side effects Foods and nutrition/ appetite Infection control/ hand washing/ hygiene Visit 2- Continue teaching Discharge instructions- include additional information on smoking cessation , sternal dressing (sternal vac) Visit 3- Continue teaching- Cough and deep breathing, incision monitoring. Choose my plate Visit 4- Continue teaching- Discuss limitations Discuss how they are feeling Discuss progress toward goals Remaining visits- continue teaching and monitoring PREVENA Single Use Negative Wound Therapy System Caregiver Instruction Sheet 1. A Prevena dressing system was applied to the chest incision during surgery , to promote wound healing. It works via a suction device (negative pressure wound therapy) to remove low to moderate levels of exudate (drainage) and infectious materials. We recommend that the device stay in place for up to seven days, from day of surgery. 2. Day of Surgery__/ Day of Removal ___/07/13 3. The dressing should only be removed by a health career guidance counselor. Please arrange removal of device to coincide with Home Health visit and or with Nursing staff at Rehab 4. If skin reddening or irritation of skin occurs, or excessive drainage, please notify the Cardiovascular Surgeons office at [phone]. 5. Light showering is permissible; however the pump should be disconnected and placed in safe location, where it will not get wet. The dressing should not be exposed to direct spray or submerged in water. No bath tub / shower only. Ensure the end of the tubing attached to the dressing is facing down so that water does not enter the top of the tube. 6. To remove Prevena dressing: press purple button to turn off device / remove the suction. Then disconnect the tubing from the pump. The fixation strips should be stretched away from the skin and the dressing lifted at one corner and peeled back until it has been fully removed. 7. After removal, it is ok to shower daily using liquid dial soap and clean wash cloth, rinse and pat dry, and leave incision open to air dry. For any concerns regarding Prevena dressing, and or wounds, please contact Zoë Pearson, patient navigator at [phone] or notify the Cardiovascular Surgeons office at [phone]. Incentive spirometry Q1 hr x 10, while awake, also use acapella device hourly whole awake Sternal Breast Bone Precautions: NO pushing or pulling, ( pt must use sternal pillow to support chest with all activities and with coughing ( takes up to 3 months breast bone to heal ) All females to wear sternal bra , launder as needed Daily incision care: ok to shower daily, no tub bath. Wash all incisions with liquid dial soap, clean wash cloth to each site, rinse and pat dry. Observe for any signs of infection, such as drainage which is dark yellow, bower, green or foul smelling. Immediately report to the surgeon any drainage from the chest incision, or legs, and for any abnormal drainage from the chest tube sites. Notify surgeon if any temp >101.5 degrees F. When specialty dressing removed/ or if you do not have one, continue to shower daily as above, then rinse and pat incision dry and paint with betadine daily x 5 days. Allow steri strips to fall off if you have any. Avoid lotions, creams, salves, oils, etc. for the first month Please see attached forms for additional instructions regarding post Open Heart specialty wound vacuum dressings. TARAH or Prevena , Dressing to be removed by Nursing staff on ____07/01/16___ For Dr. Austin patients , please obtain CBC, BMP, PA & Lat CXR in 2 weeks, results to Dr. Austin ( prescription will be given) ( ) (Tele: [phone]) , F/U appointment: as per [place] instructions: PCP in 2 weeks, CV surgeon 2 weeks, Professor Of Musicology 3-4 weeks For any questions regarding incisions/ dressing / meds / post op care or above Symptoms, Monday 8am-5pm Heart & Vascular Surgery Office ( Dr. Lim & Dr. Austin), After Hours / Nights (5pm -8am) Weekends and Holidays Please call [facility] ([facility]) Charge Nurse I have seen patient Sara Hurtado on 06/27/16. My clinical findings support the need for the requested home health care services because: Deconditioned w/ increased weakness I certify that my clinical findings support that this patient is homebound because: Post-op weakness Connie Osorio June 27, 2016 11:09
--- NOTE | 2016-06-27 11:13 | PD.CAR.PN ---
CVT Progress Note CVT: POD #: 3 Subjective/Hospital Course: 06/24 Procedure Off pump CABG x 1 MAE to LAD 06/25 Doing well Transfer telemetry Maintain CT to drainage 06/[address] still draining Ambulate 06/27 chest tube removed without difficulty gentle diuresis increase BB ambulate eval for dc home with [facility] tomorrow Objective: GENERAL: SKIN: Warm and dry.prevena to chest HEAD: Normocephalic. EYES: No scleral icterus. No injection or drainage. NECK: Supple, trachea midline. No JVD or lymphadenopathy. CARDIOVASCULAR: Regular rate and rhythm without murmurs, gallops, or rubs. RESPIRATORY: Breath sounds equal bilaterally. No accessory muscle use. GASTROINTESTINAL: Abdomen soft, non-tender, nondistended. MUSCULOSKELETAL: No cyanosis, or edema. BACK: Nontender without obvious deformity. No CVA tenderness. Vital Signs Date Time Temp Pulse Resp B/P Pulse Ox O2 Delivery O2 Flow Rate FiO2 06/27/16 10:10 78 06/27/16 09:00 83 06/27/16 08:06 84 06/27/16 08:04 96 21 06/27/16 07:06 18 06/27/16 07:00 98.0 87 18 128/83 98 06/27/16 07:00 105 06/27/16 05:16 80 06/27/16 04:00 98.7 97 16 153/91 98 06/27/16 04:00 83 06/27/16 03:56 91 21 06/27/16 03:00 77 06/27/16 02:00 76 06/27/16 01:00 76 06/27/16 00:00 98.8 75 16 115/69 98 06/27/16 00:00 79 06/26/16 23:00 76 06/26/16 22:00 90 06/26/16 21:00 98 06/26/16 20:26 93 21 06/26/16 20:00 86 06/26/16 20:00 99.1 92 19 139/84 98 06/26/16 19:00 96 06/26/16 18:12 82 06/26/16 17:00 78 06/26/16 16:23 82 06/26/16 15:15 98.7 79 19 129/88 100 06/26/16 15:00 79 06/26/16 14:00 73 06/26/16 13:32 83 06/26/16 12:25 64 06/26/16 11:58 98.4 85 20 122/82 95 Result Diagram: 06/26/16 0600 06/26/16 0600 Telemetry: NSR (1) S/P CABG x 1 (2) Unstable angina (3) CAD (coronary artery disease) Plan: ASA, BB , statin pulm toileting OOB ambulate eval for dc in am (4) Glaucoma suspect of both eyes Connie Osorio June 27, 2016 11:13
[2016-06-27] MEDS: SENNOSIDES 8.6 MG TAB PO SCH (21:00)
[2016-06-27] MEDS: ATORVASTATIN 40 MG TAB PO SCH (21:02)
[2016-06-28] VITALS (19 sets, daily range): BP systolic 126–158; BP diastolic 81–97; PULSE 57–82; RESP 16–18; TEMP 98–98.4; O2SAT 96–99
--- NOTE | 2016-06-28 05:38 | RADRPT ---
EXAM DATE/TIME: 06/28/2016 04:05 [place] COMPARISON: CHEST SINGLE AP, June 25, 2016, 5:17. INDICATIONS : Chest tube removal. MEDICAL HISTORY : Cardiovascular disease. SURGICAL HISTORY : CABG. ENCOUNTER: Subsequent ACUITY: 4 - 6 days PAIN SCORE: Non-responsive. LOCATION: Bilateral chest FINDINGS: The cardiac silhouette is enlarged in transverse diameter. There is left lower lobe atelectasis versu s pneumonia. The left chest tube has been removed. There is no evidence of pneumothorax. CONCLUSION: 1. There is no evidence of pneumothorax. Jonathan Pérez MD on June 28, 2016 at 5:36 Board Certified Radiologist. This report was verified electronically.
[2016-06-28] MEDS: PANTOPRAZOLE SOD 40 MG DELAYED RELEASE TAB PO SCH (06:00)
[2016-06-28] MEDS: INSULIN ASPART SUPPLEMENTAL SCALE SQ SCH ×3 (06:17→16:00)
[2016-06-28] MEDS ORDERED: FUROSEMIDE 40 MG/4 ML VIAL IV PUSH ONE (08:15)
[2016-06-28] MEDS ORDERED: POTASSIUM CHLORIDE 20 MEQ CONTROLLED RELEASE TAB PO ONE (08:15)
[2016-06-28] MEDS: SODIUM CHLORIDE 0.9% FLUSH 10 ML FLUSH IV FLUSH SCH (08:43)
[2016-06-28] MEDS: ASPIRIN 81 MG CHEW TAB PO SCH (08:44)
[2016-06-28] MEDS: MULTIVITAMINS/MINERALS THERAPEUTIC TAB PO SCH (08:44)
[2016-06-28] MEDS: AMIODARONE 200 MG TAB PO SCH (08:44)
[2016-06-28] MEDS: DOCUSATE SODIUM 100 MG CAP PO SCH (08:44)
[2016-06-28] MEDS: METOPROLOL TARTRATE 25 MG TAB PO SCH (08:44)
[2016-06-28] MEDS: MAGNESIUM HYDROXIDE SUSP 30 ML CUP PO SCH (08:45)
[2016-06-28] MEDS: POLYETHYLENE GLYCOL 17 GM PKG PO SCH (08:46)
[2016-06-28] MEDS: POLYVINYL ALC-POVIDONE 1.4/0.6% PF OPTH SOLN 0.4 ML 30 CT EACH EYE SCH ×3 (09:00→18:00)
[2016-06-28 09:25] LABS: BICARBONATE 28.2 MEQ/L (21.0-32.0); MAGNESIUM 2.4 MG/DL (1.5-2.5); POTASSIUM 3.8 MEQ/L (3.5-5.1)
[2016-06-28] MEDS ORDERED: POTA-163 PO (10:13)
[2016-06-28] MEDS ORDERED: FURO1TAB60 PO (10:13)
[2016-06-28] MEDS ORDERED: MISC-163 (10:23)
--- NOTE | 2016-06-28 10:54 | HHI.DS ---
Discharge Summary Admission Date Jun 23, 2016 at 15:29 Discharge Date: June 28, 2016 Admitting Diagnosis chest pain , CAD (1) Dry eyes, bilateral Diagnosis: Principal (2) Unstable angina Diagnosis: Principal (3) CAD (coronary artery disease) Diagnosis: Principal (4) Glaucoma suspect of both eyes Diagnosis: Principal (5) S/P CABG x 1 Diagnosis: Secondary Procedures Off pump CABG x 1 MAE to LAD - good 06/24/16 Brief History 60/ female SOB and chest pain , + lexiscan , underwent cardiac cath by Dr Gonzalez prox LAD 100% , EF 60 PMH: depression , HTN, morbid obesity , palpitations ( loop recorder) syncope, HX bariatric surgery CBC/BMP: 06/26/16 0600 06/28/16 0744 Significant Findings Laboratory Tests Test 06/26/16 06:00 Red Blood Count 3.70 MIL/MM3 (4.00-5.30) Hemoglobin 9.8 GM/DL (11.6-15.3) Hematocrit 29.9 % (35.0-46.0) Mean Corpuscular Hemoglobin 26.6 PG (27.0-34.0) Neutrophils (%) (Auto) 78.5 % (16.0-70.0) Monocytes (%) (Auto) 9.0 % (0.0-8.0) Calcium Level 8.3 MG/DL (8.5-10.1) Imaging Last Impressions Chest X-Ray 06/28/16 0600 Signed Impressions: Service Date/Time: Tuesday, June 28, 2016 04:05 - CONCLUSION: 1. There is no evidence of pneumothorax. Jonathan Pérez MD Lower Extremity Ultrasound 06/23/16 0000 Signed Impressions: Service Date/Time: May 17:48 - CONCLUSION: Normal examination. Marques Kaye MD Carotid Artery Ultrasound 06/23/16 0000 Signed Impressions: Service Date/Time: May 17:21 - CONCLUSION: No evidence for hemodynamically significant stenosis. Marques Kaye MD PE at Discharge GENERAL: SKIN: Warm and dry.prevena to chest , HEAD: Normocephalic. EYES: No scleral icterus. No injection or drainage. NECK: Supple, trachea midline. No JVD or lymphadenopathy. CARDIOVASCULAR: Regular rate and rhythm without murmurs, gallops, or rubs. + edema lower ext RESPIRATORY: Breath sounds equal bilaterally. No accessory muscle use. GASTROINTESTINAL: Abdomen soft, non-tender, nondistended. MUSCULOSKELETAL: No cyanosis, or edema. BACK: Nontender without obvious deformity. No CVA tenderness. Hospital Course 06/24 Procedure Off pump CABG x 1 MAE to LAD 06/25 Doing well Transfer telemetry Maintain CT to drainage 06/[address] still draining Ambulate 06/27 chest tube removed without difficulty gentle diuresis increase BB ambulate eval for dc home with [facility] tomorrow Pt Condition on Discharge: Good Discharge Disposition: Disch w/ Home Health Serv Discharge Instructions DIET: Follow Instructions for: Heart Healthy Diet Activities you can perform: Full Weight Bearing, Shower Only-No Bath Activities to avoid: Prolonged Standing, Strenuous Activity, Driving Additional Activity Instructio: no lifting > 8 lbs or gallon of milk New Orders: BASIC METABOLIC PROF - 2 Weeks CBC NO DIFF - 2 Weeks X-RAY CHEST PA & LAT - 2 Weeks New Medications: 3-in-1 Bedside Toilet (3-in-1 Bedside Toilet) 1 Mis Mis 1 EA .ROUTE DIRECTED #1 EA Furosemide (Lasix) 40 Mg Tab 40 MG PO DAILY edema Days 7 Ref 1 TAB Potassium Chloride ER (Potassium Chloride ER) 20 Meq Tab 20 MEQ PO DAILY Electrolyte Replacement #7 Ref 1 TAB Amiodarone (Amiodarone) 200 Mg Tab 200 MG PO Q12HR heart rhythm #28 Ref 0 TAB Atorvastatin (Atorvastatin) 40 Mg Tab 40 MG PO HS Cholesterol Management #30 Ref 2 TAB Docusate Sodium (Dok) 100 Mg Cap 100 MG PO BID Constipation #60 Ref 0 CAP Metoprolol Tartrate (Metoprolol Tartrate) 25 Mg Tab 50 MG PO Q12HR Blood Pressure Management #60 Ref 2 TAB Multiple Vitamins W/ Minerals (Thera M Plus) 1 Tab 1 TAB PO DAILY multi vitamin #30 Ref 1 TAB ([Aspirin Chew]) 81 MG CHEW 81 MG PO DAILY #100 Ref 1 TAB.CHEW Continued Medications: Benazepril (Benazepril) 20 Mg Tab 20 MG PO DAILY Blood Pressure Management TAB Cholecalciferol (Vitamin D3) 1,000 Unit Chew 1000 UNITS CHEW DAILY Nutritional Supplement #1 BOTTLE Cyanocobalamin (Vitamin B12 Tr) 1,000 Mcg Tab 1000 MCG PO DAILY #1 BOTTLE Fish Oil-Cholecalciferol ([place]-3 Fish Oil/Vitamin) 1,000-1,000 Mg Cap 1 CAP PO DAILY Nutritional Supplement CAP Ginkgo Biloba (Ginkoba) 40 Mg Tab Unknown Dose PO DAILY Hydrochlorothiazide (Hydrochlorothiazide) 25 Mg Tab 12.5 MG PO DAILY stop while take lasix ( furosemide) , restart after completing 7 day dose of lasix TAB Multiple Vitamin (Multiple Vitamin) 1 Tab 1 TAB PO DAILY Nutritional Supplement TAB Polyvinyl Alcohol-Povidone Opth Drops (Refresh Opth Drops) 1.4-0.6% Drops 1-2 DROP EACH EYE TID #1 BOTTLE Jonas's Wort ([place] Perf (St Reece Wort) 300 Mg Tab 300 MG PO DAILY Control Depression TAB Discontinued Medications: Aspirin (Aspirin) 325 Mg Tab 325 MG PO DAILY #30 TAB Metoprolol Succinate ER 24 HR (Metoprolol Succinate ER 24 HR) 100 Mg Tab 100 MG PO DAILY TAB Connie Osorio June 28, 2016 10:54
--- NOTE | 2016-06-28 10:54 | RSPPFT ---
DATE OF PROCEDURE: 06/23/16 COMMENTS: Spirometry shows FVC of 3.1 predicted 3.1, FEV1 of 2.1 predicted 2.5, FEV1/FVC ratio 69% predicted 79%. IMPRESSION: On the basis of the above, patient has a mild reduction in the FEV1/FVC ratio and if clinically indicated, lung volumes would be necessary for further information.
[2016-06-28] MEDS ORDERED: ENALAPRIL MALEATE 10 MG TAB PO SCH (11:00)
[2016-06-30 08:03] VITALS: BP 121/66; PULSE 47; RESP 16; TEMP 98.3; O2SAT 98
== END 2016-06-28 19:00 | disposition home or self-care (01) | DRG 234 ==
LOC: HDIC 08:59 → HDOC 08:59 → HSDI 15:29 → HDOC 15:29 → HCIN 17:15 → HCIS 06-24 07:30 → HCVR 06-24 10:30 → HCIN 06-25 14:37
PROVIDERS: ADMIT Thoracic Surgery (Cardiothoracic Vascular Surgery); ATTEND Thoracic Surgery (Cardiothoracic Vascular Surgery)
PROC: 021009W Bypass Coronary Artery, One Artery from Aorta with Autologous Venous Tissue, Open Approach (ICD-10-PCS; 2016-06-23)
PROC: 02100Z9 Bypass Coronary Artery, One Artery from Left Internal Mammary, Open Approach (ICD-10-PCS; 2016-06-23)
PROC: 4A023N7 Measurement of Cardiac Sampling and Pressure, Left Heart, Percutaneous Approach (ICD-10-PCS; principal; 2016-06-23 11:00)
PROC: B2111ZZ Fluoroscopy of Multiple Coronary Arteries using Low Osmolar Contrast (ICD-10-PCS; 2016-06-24)
PROC: B2151ZZ Fluoroscopy of Left Heart using Low Osmolar Contrast (ICD-10-PCS; 2016-06-24)
PROC: 5A1221Z Performance of Cardiac Output, Continuous (ICD-10-PCS; 2016-06-24)
DX: I25.110 Atherosclerotic heart disease of native coronary artery with unstable angina pectoris (principal); I10 Essential (primary) hypertension; Z87.891 Personal history of nicotine dependence; H40.003 Preglaucoma, unspecified, bilateral; F32.9 Major depressive disorder, single episode, unspecified; Z98.84 Bariatric surgery status
CPT/HCPCS: 71010; 71020; 76937; 80048; 80061; 81001; 82948; 83036; 83735; 85014; 85025; 85027; 85610; 85730; 86850; 86900; 86901; 86920; 87641; 93005; 93458; 93880; 93970; 93998; 94002; 94010; 94150; 94640; 94664; 94667; 94668; C1760; C1769; C1893; C9399; G0269; J0131; J0690; J1644; J1940; J2150; J2250; J2270; J2440; J2720; J2765; J2930; J3010; J3370; J3475; J3480; J7030; P9047; Q9967

== ENCOUNTER 2017-08-24 07:45 | Day surgery (SDC) | payer OTHER ==
[~2017-08-24] VITALS: Ht 165.1 cm; Wt 95.4 kg
[~2017-08-24 07:45] MED LIST changes: +AMIO200T PO; -ASPI325T PO; +ATOR40TA16 PO; +Aspirin Chew PO; +DOCU1CAP39 PO; +FURO1TAB60 PO; -METO100T9 PO; +METO25TA3 PO; +MISC-163; +POTA-163 PO; +THERM PO
[2017-08-24] MEDS ORDERED: IOHEXOL 350 MG/ML 100 ML BTL (for Cath Lab) OTHER ONE (07:46)
[2017-08-24] MEDS ORDERED: ISOS60TA PO (08:21)
[2017-08-24 08:22] VITALS: BP 118/70; PULSE 50; RESP 18; TEMP 98.4; O2SAT 96
[2017-08-24 08:50] LABS: AUTOMATED NEUTROPHIL # 3.6 TH/MM3 (1.8-7.7); BASOPHIL % 0.8 % (0.0-2.0); EOSINOPHIL # 0.5 TH/MM3 (0-0.4); EOSINOPHIL % 7.9 % (0.0-4.0); HEMATOCRIT 37.6 % (35.0-46.0); HEMOGLOBIN 12.4 GM/DL (11.6-15.3); LYMPH % 22.2 % (9.0-44.0); LYMPHOCYTE # 1.3 TH/MM3 (1.0-4.8); MEAN CELL VOLUME 82.2 FL (80.0-100.0); MEAN CORPUSCULAR HEMOGLOBIN 27.2 PG (27.0-34.0); MEAN CORPUSCULAR HGB CONC 33.1 % (32.0-36.0); MONO % 9.3 % (0.0-8.0); MONOCYTE # 0.6 TH/MM3 (0-0.9); NEUT % 59.8 % (16.0-70.0); PLATELET COUNT 210 TH/MM3 (150-450); RED BLOOD COUNT 4.57 MIL/MM3 (4.00-5.30); RED CELL DISTRIBUTION WIDTH 13.9 % (11.6-17.2)
[2017-08-24 09:14] LABS: BICARBONATE 26.3 MEQ/L (21.0-32.0); CALCIUM 8.7 MG/DL (8.5-10.1); CREATININE 0.83 MG/DL (0.50-1.00)
[2017-08-24 09:51] LABS: INTERNATIONAL NORMALIZED RATIO 1.1 RATIO; PROTHROMBIN TIME - PATIENT 10.7 SEC (9.8-11.6)
[2017-08-24] MEDS ORDERED: HEPARIN-NS/PF INJ 1,500 ML ONE (10:12)
[2017-08-24] MEDS ORDERED: MIDAZOLAM HCL 2 MG/2 ML VIAL ONE (10:12)
[2017-08-24] MEDS ORDERED: NITROGLYCERIN INJ 5 ML ONE (10:13)
[2017-08-24] MEDS ORDERED: HEPARIN SODIUM - IV 10,000 UNITS/10 ML VIAL ONE (10:13)
[2017-08-24] MEDS ORDERED: LIDOCAINE HCL 1% PF 30 ML VIAL ONE (10:16)
--- NOTE | 2017-08-24 11:23 | CATHPROC ---
Improve Digital HIS Report Study Information Study Number Admission Scheduled Start Study Start [id number] Aug 24 2017 7:45AM 08/24/2017 Aug 24 2017 10:02AM [place] Service Cardiac Catheterization Admit Source Facility Department Other [facility] Physician and Clinical Staff Initial Delon Knapp Motorcycle Riding Instructor Aiden RN, Vinod Recorder Sarah Santacruz,RT(R) (BS) Scrub Moshe RankinRT(R) Procedures Performed Procedure Location (Site) Vessel Name Coronary Angiograms LCA Left Coronary Coronary Angiograms RCA Right Coronary Coronary Angiograms MAE-LAD Left Coronary Wire insertion Radial (left) Radial Art. Equipment Time Umbrella Tipper Machine Description Size Mfg Part Number Used/Scraped TRANSDUCER, TRGigSocialAVE [id number] 10:45 GARBER KATE * Used W/STOCKCOCK *[id number] *[id number] *[id number] 10:45 [employer] BLANKET,WARM AIR CCL * Used *[id number] 10:45 [employer] PACK, CCL CUSTOM * Used *[id number] 10:45 [employer] SUPPORT, ARTERIAL ADULT [id number] *[id number] Used [id number] 10:46 MEDTRONIC JL 3.5 DXTERITY CATHETER FR 5 Used *[id number] BAND, RADIAL COMPRESSION TR [id number] 11:06 [employer] MEDICAL 24CM Used SHORT 24 *[id number] 10:45 [employer] WIRE, EXCHANGE 260CM 3MMJ 260CM Used *[id number] 10:45 NAMIC MANIFOLD, 4 PORT * Used *[id number] 10:45 [employer]ED OMNIPAQUE, 350 MG, 150ML 150ML [id number] Used SHEATH, FR6 TRANSRADIAL RM*[id number] 10:45 [employer] MEDICAL FR 6 Used SLENDER 10CM *[id number] History: Current Medications Medication Dosage/Unit Route Frequency Last Date/Time Taken Statins (any) Beta Carmen History: Allergies Allergy Reaction No Known Allergies History: Risk Factors Family History of Hypertension Dyslipidemia Previous [place] Previous Heart Failure Premature CAD No No No No No Prior Valve Prior PCI Prior CABG Prior CABGDate Surgery No No Yes 06/24/2016 Cerebrovascular Peripheral Artery Chronic Lung On Dialysis Diabetes Disease Disease Disease No Yes No No No History: Stress Tests Stress or Imaging Studies Performed Yes Standard Exercise Stress Test No Stress Echo No Stress Test SPECT Stress Test SPECT Result Yes Positive Stress Test CMR No Cardiac CTA Coronary Calcium Score No No History: Other Current Smoker Method Quit Packs a Day Years Used Pack Years No Cigarettes 9 Years Ago 1 35 35 Labs Hgb (g/dl) Hct (%) WBC (l/cumm) Platelets (thousands) 11.60-17.00 35.00-51.00 4.00-11.00 150.00-450.00 12.4 37.6 6 210 Glucose (mg/dl) BUN (mg/dl) Creatinine (mg/dl) BUN:Creatinine (1:x) 74.00-106.00 7.00-18.00 0.50-1.30 10.00-20.00 88 14 0.8 17.5 Na (meq/l) K (meq/l) 136.00-145.00 3.50-5.10 141 3.7 CPK-MB (ng/ML) 0.50-3.60 Not Drawn Medication Medication Total Dose (Bolus/Oral) Medication Total Dosage/Unit 1% XYLOCAINE 1 mL FENTANYL 25 mcg RADIAL COCKTAIL 1 units VERSED 0.5 mg Medications (Bolus/Oral) Medication Time Given Dosage/Unit Administered By Reason VERSED 08/24/2017 10:39:28 AM 0.5 mg Vinod Wolfe RN 0.5 mg VERSED given in lab by Vinod Wolfe RN in Left Antecubital via Peripheral IV. 1% XYLOCAINE 08/24/2017 10:40:17 AM 1 mL Delon Fleming 1 mL 1% XYLOCAINE given in lab by Delon Fleming in Left Radial via Subcutaneous. FENTANYL 08/24/2017 10:40:41 AM 25 mcg Vinod Wolfe RN 25 mcg FENTANYL given in lab by Vinod Wolfe RN in Left Antecubital via Peripheral IV. Ntg 200mcg Verapamil 2.5mg Heparin RADIAL COCKTAIL 08/24/2017 10:45:27 AM 1 units Delon Fleming 3000U 1 units RADIAL COCKTAIL given in lab by Delon Fleming via Radial. Reason: Ntg 200mcg Heparin 40 00U. Medication (Drip) Medication Time Given Dosage/Unit Concentration/Unit Diluent (ml) Solution IV Solutions 08/24/2017 10:12:32 AM 0 mL (IV) 500 NaCl .9 IV Solutions given in lab by Vinod Wolfe RN in Left Antecubital via Peripheral IV. Pump/Drip Flow = 30 ml/hr using NaCl .9. Initial Case Assessment Cardiovascular HR Rhythm NIBP Chest Pain 50 bao 125/73 0 Edema Present Skin color Skin None Normal Warm Dry Circulatory - Right Pulses Dorsalis Pedis Femoral 2 2 Scale (0,1,2,3,4,d) Circulatory - Left Pulses Dorsalis Pedis Femoral 2 1 Scale (0,1,2,3,4,d) Neurological State Oriented to time-place- Alert Moves all extremities person Respiration - General Respiration Rate SpO2 (%) (B/min) 13 98 Chronological Log Time Study Chronological Log 10:04:46 Patient arrived via Bed. 10:04:46 Patient Name, D.O.B, / Armband Verified By R.N. 10:12:15 Consent signed by the physician and the patient and verified by the [facility] staff. 10:12:16 Pre-op and post- op instructions given; patient acknowledges understanding of instructions. 10:12:17 Verbal Stimulation=2 Physical Stimulation=2 Airway=2 Respiration=2 TOTAL=8. (0=absent, 1=li mited, 2=present) 10:12:18 Presedation assessment performed by [facility] RN. 10:12:23 Allens test performed on the left radial and ulnar artery. 10:12:24 Patient has been NPO for More than 6Hrs. 10:12:28 Skin Breakdown none per pt 10:12:29 Patient Warmer Placed on the Table. 10:12:30 Hawk Prominences Protected 10:12:31 A # 20 IV was noted in the Antecubital (left). Grade = 0 IV Solutions given in lab by Vinod Wolfe RN in Left Antecubital via Peripheral IV. Pump/Drip F low = 30 ml/hr using NaCl 10:12:32 .9. 10:12:33 History and physical on the chart or being dictated. Assessment: Initial Case, HR=50 BPM, Rhythm=bao, HXTZ=462/73 mmhg, Chest Pain=0, Edema=None, Color=Normal, Skin = Warm, Dry Right Pulses: Sal Ped=2, Femoral=2 10:12:35 Left Pulses: Sal Ped=2, Femoral=1 Neurological: State=Alert, Ox3, MCCALL Respiration: Resp=13 B/min, SpO2=98 % Vitals capture started with the following parameters, Patient=Adult, Interval=5 min, Initial Pr vihpps=539 mmHg, 10:13:27 Deflation Rate=5 mmHg, Cuff placed on Left Arm 10:14:18 YNBE=855/73 mmhg, SpO2=99.0 %, Resp=12 B/min, Pain=0, Dale=10, Patel=2 10:18:42 Left radial and groin(s) prepped with 2% chlorhexidine, and draped after a 3 min. waiting t devon. 10:19:41 HR=50 bpm, EGRT=745/74 mmhg, SpO2=97.0 %, Resp=15 B/min, Pain=0, Dale=10, Patel=2 10:23:49 MD paged 10:24:42 HR=51 bpm, PCZN=281/70 mmhg, SpO2=99.0 %, Resp=13 B/min, Pain=0, Dale=10, Patle=2 10:24:51 Pressure channel 1 zeroed. 10:25:17 MD arrived 10:25:40 Reference ECG taken 10:29:43 HR=51 bpm, WBJN=873/74 mmhg, SpO2=99.0 %, Resp=12 B/min, Pain=0, Dale=10, Patel=2 10:34:12 HR=50 bpm, UVKK=823/68 mmhg, SpO2=97.0 %, Resp=10 B/min, Pain=0, Dale=10, Patel=2 Time Out. Correct patient, correct procedure, correct physician, labs, allergies, and equipment verified with medical lab technician 10:39:05 team present. Fire risk assesment completed (see hard stop sheet for coding). Time Out Conc urred by MD and individual staff in procedure. 10:39:21 Case Start 10:39:28 0.5 mg VERSED given in lab by Vinod Wolfe RN in Left Antecubital via Peripheral IV. 10:39:50 HR=50 bpm, RZID=189/70 mmhg, SpO2=97.0 %, Resp=10 B/min, Pain=0, Dale=10, Patel=2 10:40:17 1 mL 1% XYLOCAINE given in lab by Delon Fleming in Left Radial via Subcutaneous. 10:40:41 25 mcg FENTANYL given in lab by Vinod Wolfe RN in Left Antecubital via Peripheral IV. 10:44:12 HR=54 bpm, LPHD=652/61 mmhg, SpO2=99.0 %, Resp=10 B/min, Pain=0, Dale=10, Patel=2 10:44:18 Access site was left Radial Artery. A SHEATH, FR6 TRANSRADIAL SLENDER 10CM FR 6 was advanced into the Radial (left) using the Qing baum 10:44:29 technique. 10:45:27 1 units RADIAL COCKTAIL given in lab by Delon Fleming via Radial. Reason: Ntg 200mcg Heparin 4000U. A JR 4.0 INFINITI CATHETER FR 5 was advanced over a wire. OMNIPAQUE, 350 MG, 150ML 150ML was us ed for 10:46:30 injections. Recorded Pressure: Ao, HR=55, Condition=Condition 1 10:47:18 (Aorta) Ao 102/61/79 10:48:19 NIBP STAT measurement started. 10:49:01 HR=56 bpm, SKJS=575/66 mmhg, SpO2=98.0 %, Resp=12 B/min, Pain=0, Dale=10, Patel=2 10:49:32 A WIRE, EXCHANGE 260CM 3MMJ 260CM was inserted via Radial (left). 10:50:04 Wire removed Recorded Pressure: LV, HR=55, Condition=Condition 1 10:50:55 (Left Ventricle) LV 99/5/13 Recorded Pressure: LV, Ao, HR=53, Condition=Condition 1 10:51:12 (Left Ventricle) LV 99/6/11, (Aorta) Ao 95/53/70 10:51:59 The RCA was injected and visualized at various angles. OMNIPAQUE, 350 MG, 150ML 150ML used . After removing the current catheter a JR 4.0 INFINITI CATHETER FR 5 was advanced over a WIRE, E XCHANGE 260CM 10:53:14 3MMJ 260CM. 10:54:10 HR=60 bpm, EZUA=106/71 mmhg, SpO2=96.0 %, Resp=23 B/min, Pain=0, Dale=10, Patel=2 10:56:37 The LCA was injected and visualized at various angles. OMNIPAQUE, 350 MG, 150ML 150ML used . After removing the current catheter a LOBO INFINITI CATHETER FR 5 was advanced over a WIRE, EXC HANGE 260CM 10:58:48 3MMJ 260CM. 10:59:13 HR=64 bpm, FTEX=193/69 mmhg, SpO2=96.0 %, Resp=15 B/min, Pain=0, Dale=10, Patel=2 11:01:59 Pressure channel 1 zeroed. 11:02:40 The MAE-LAD was injected and visualized at various angles. OMNIPAQUE, 350 MG, 150ML 150ML used. 11:04:12 HR=57 bpm, UMBT=313/72 mmhg, SpO2=97.0 %, Resp=11 B/min, Pain=0, Dale=10, Patel=2 11:05:14 A WIRE, EXCHANGE 260CM 3MMJ 260CM was inserted via Radial (left). 11:05:22 Catheter was removed 11:05:25 Wire removed 11:07:02 Case End (Physician broke scrub) 11:08:10 Catheter(s) removed without difficulty 11:09:05 No case complications noted. 11:09:08 Bedside Report will be given. 11:09:11 HR=63 bpm, MCXH=147/74 mmhg, SpO2=98.0 %, Resp=10 B/min, Pain=0, Dale=10, Patel=2 Radial Compression Device Used. 10 mLs of air placed in BAND, RADIAL COMPRESSION TR SHORT 24 2 4CM. Affected 11:09:11 hand 96 % O2 saturation. 11:12:54 Vitals capture stopped. 11:15:50 [facility] to [facility] End Study - Contrast Media Used In Study Contrast Total Opened (mL) Total Used (mL) Total Wasted (mL) Omnipaque 70 70 0 End Study - Maximum Contrast Load Max Contrast Load (mL) 596.3 End Study - Radiation Exposure Fluoro Time (minutes) 5.3 End Study - Patient Disposition Complications Transferred To Interventional Outcome No [facility] Holding No attempt made
[2017-08-24] MEDS ORDERED: MISC INFORMATION XX ONE (11:30)
--- NOTE | 2017-08-24 19:27 | EKG ---
Date Performed: 08/24/2017 Time Performed: 08:22:46 PTAGE: 62 years EKG: Sinus bradycardia. Low QRS voltages in precordial leads Borderline ECG PREVIOUS TRACING : 06/25/2016 03.58 Since the previous tracing, no significant change noted DOCTOR: Gee Garcia Interpretating Date/Time 08/24/2017 19:27:07
--- NOTE | 2017-08-24 23:34 | MA ---
cc: Delon Fleming DO DATE: 08/24/2017 PROCEDURE: Left heart catheterization, coronary angiogram, bypass angiogram, moderate sedation 30 minutes. PREPROCEDURE DIAGNOSIS: Typical angina, coronary artery disease, history of coronary artery bypass graft x 1, abnormal stress test. POSTPROCEDURE DIAGNOSES: Coronary artery disease, history of coronary artery bypass graft (02/27 graft patent). MEDICATIONS: Versed 0.5 mg, fentanyl 25 mcg, nitro 200 mcg, heparin 4000 units. CONTRAST USED: 70 mL FLUOROSCOPY: 5.3 minutes. MODERATE SEDATION: 30 minutes. FRAILTY SCORE: Three. ESTIMATED BLOOD LOSS: 10 mL PROCEDURAL SUMMARY: Sara Hurtado is a pleasant 62-year-old female who sees my partner, Dr. Garcia, in the office and was noted to have chest pain, which sounded fairly typical. Because of this, she underwent stress testing and was found to have anterior ischemia. Because of this, she was recommended cardiac catheterization. Risks, benefits and alternatives were explained to her and she consented to such. She was brought to the lab and prepped in the usual sterile fashion. Left radial artery was accessed using a modified Seldinger technique and placement of a 5/6 [place] slender sheath. This was easily aspirated and flushed. A JR4 was advanced to the ascending aorta and across the aortic valve for measurement of left ventricular pressure. This was pulled back across the aortic valve, showing no significant gradient of aortic stenosis. JR4 was used for selective angiography of the right coronary artery system. This was exchanged out for a JL4, which was used for selective angiography of the left coronary artery system. JL4 was exchanged out for an IM catheter and this was pulled back across the subclavian ostium, showing no gradient of subclavian stenosis. IM catheter was used for selective angiography of the MAE to LAD. IM catheter was removed. Radial band was placed over the arteriotomy site for hemostasis. The patient left the chemical lab supervisor cardiovascularly stable. FINDINGS: Left main 20% ostial disease. It bifurcates into an LAD and circumflex. LAD 100% occluded at the proximal portion. There are minimal [id number] collaterals filling somewhat of a diagonal. There is also [id number] collaterals which fill a mid portion of the LAD with competitive flow seen both proximal and distal to this. Left circumflex, moderate to large size vessel. It supplies 1 large obtuse marginal, which has an upper and lower branch and no significant disease. RCA, moderate size vessel with 30% disease. Distally, it supplies the PDA as well as the posterolateral branch. MAE to LAD is patent and supplies both antegrade and retrograde in the LAD. Retrogradely, there appears to be competitive flow, most likely due to the collaterals from the right coronary artery. Distally, it supplies collaterals to a small diagonal. LVEDP 11. IMPRESSION: 1. Chest pain. 2. Coronary artery disease with a history of coronary artery bypass graft (/ graft patent). 3. Abnormal stress test. RECOMMENDATIONS: 1. Ms. Hurtado appears to have no significant lesions at this time causing her chest pain. Chest pain may be due to the collaterals supplying a small diagonal, but there is no way to intervene to help supply this blood flow further. 2. She will be recommended continued medical therapy. 3. She will followup with Dr. Garcia as previously scheduled. Thank you for allowing me to see Sara Hurtado. If there are any questions, please do not hesitate to call. DO DIAMANTE Mei/LETY , 11:06 PM , 11:32 PM MTDVeronica
== END 2017-08-24 14:20 | disposition home or self-care (01) ==
LOC: HCAT 07:45 → HDIC 07:46 → HCAT 14:20
PROVIDERS: ATTEND Nuclear Medicine Nuclear Cardiology
DX: R94.39 Abnormal result of other cardiovascular function study (principal); I25.119 Atherosclerotic heart disease of native coronary artery with unspecified angina pectoris; Z95.1 Presence of aortocoronary bypass graft; R00.1 Bradycardia, unspecified; Z79.82 Long term (current) use of aspirin
CPT/HCPCS: 80048; 85025; 85610; 85730; 93005; 93459; 99152; 99153; C1769; C1893; J1644; J2250; J3010; Q9967